=== PATIENT | female | born 1950 | race Caucasian/White ===

== ENCOUNTER 2021-04-20 15:01 | Emergency (ER) | payer OTHER, MEDICAID ==
[~2021-04-20] VITALS: Ht 162.6 cm; Wt 76.7 kg
[2021-04-20 15:31] VITALS: BP_SYST 146
--- NOTE | 2021-04-20 15:47 | NUR ---
Patient to ER bed 5 to gown for evaluation. Side rails up. Report given to Rob RÍOS.
--- NOTE | 2021-04-20 16:00 | NUR ---
ER Dr. Munguia at bedside examining patient.
--- NOTE | 2021-04-20 16:03 | NUR ---
MARIA ESTHER TO ASSUME CARE, PT HERE FROM HOME FOR LBP/NAUSEA AND GENERAL WEAKNESS, RECENT COVID + TEST
[2021-04-20] MEDS ORDERED: HYDROcodone/ACETAMIN 5-325 MG TAB (NORCO/ VICODIN) PO ONE (16:30)
[2021-04-20] MEDS ORDERED: KETOROLAC TROMETHAMINE 60 MG/2 ML VIAL IM ONE (16:30)
--- NOTE | 2021-04-20 16:32 | NUR ---
DENIES CP/SOB, CLEAR MENTATION AND SPEECH
--- NOTE | 2021-04-20 16:57 | NUR ---
CALM, ALERT, DENIES CP/SOB, SKIN WARM AND DRY
[2021-04-20 17:17] LABS: BASOPHILS % (AUTO) 0.2 % (0.0-2.0); HEMATOCRIT 42.4 % (36-48); HEMOGLOBIN 14.3 g/dL (12.0-16.0); LYMPHOCYTES # (AUTO) 1.4 K/uL (1.0-5.5); LYMPHOCYTES % (AUTO) 25.7 % (20.5-51.5); MEAN CORPUSCULAR HEMOGLOBIN 29 pg (27-31); MEAN CORPUSCULAR HGB CONC 34 % (32-36); MEAN CORPUSCULAR VOLUME 87 fL (79.0-98.0); MONOCYTES # (AUTO) 0.4 K/uL (0.0-1.0); MONOCYTES % (AUTO) 7.3 % (1.7-9.3); NEUTROPHILS # (AUTO) 3.6 K/uL (1.8-7.7); NEUTROPHILS % (AUTO) 66.8 % (40.0-70.0); PLATELET COUNT (AUTO) 199 K/uL (130-430); RED BLOOD CELL COUNT(AUTO) 4.87 MIL/uL (4.2-6.2); RED CELL DISTRIBUTION WIDTH 12.7 % (9.0-15.0); WHITE BLOOD COUNT (AUTO) 5.4 K/uL (4.8-10.8)
[2021-04-20 17:45] LABS: ALBUMIN 3.1 g/dL (3.4-4.8); CALCIUM 8.7 mg/dL (8.4-11.0); CREATININE 0.74 mg/dL (0.55-1.30); POTASSIUM 3.7 mmol/L (3.5-5.1); TOTAL BILIRUBIN 0.4 mg/dL (0.0-1.0)
[2021-04-20 17:57] LABS: C-REACTIVE PROTEIN QUANT 11.1 mg/dL (0-0.5)
--- NOTE | 2021-04-20 17:59 | NUR ---
UPDATE TO DAUGHTER
[2021-04-20 18:35] VITALS: BP_SYST 116
== END 2021-04-20 18:35 | disposition home or self-care (01) ==
LOC: SED 15:01
DX: U07.1 COVID-19 (principal); M79.18 Myalgia, other site; Z88.5 Allergy status to narcotic agent
CPT/HCPCS: 36415; 71045; 80053; 83605; 84484; 85025; 86140; 96372; 99284; J1885